=== PATIENT | male | born 1955 | race Caucasian/White ===

== ENCOUNTER → 2024-05-22 07:53 | Outpatient (CLI) | payer OTHER, SELFPAY ==
[2024-05-22 08:17] LABS: Add Manual Diff / Slide Review NO; Basophils Absolute Auto 0 /uL (0-100); Basophils Percent Auto 0.4 % (0-2); Eosinophils Absolute Auto 100 /uL (0-450); Eosinophils Percent Auto 1.4 % (2-4); Hematocrit 46.4 % (41-53); Hemoglobin 15.5 g/dL (13.5-17.5); Lymphocytes Absolute Auto 1100 /uL (1100-4500); Lymphocytes Percent Auto 21.3 % (25-40); Mean Corpuscular HGB Conc 33.5 % (30-36); Mean Corpuscular Hemoglobin 27.7 PG (26-34); Mean Corpuscular Volume 82.8 fL (80-100); Monocytes Absolute Auto 400 /uL (0-900); Monocytes Percent Auto 7.9 % (3-14); Neutrophils Absolute Auto 3700 /uL (1500-7000); Platelet Count 149 X10^3/uL (150-400); White Blood Cell Count 5.3 X10^3/uL (4.5-11.0)
[2024-05-22 08:37] LABS: Hemoglobin A1C% w Est Avg Glu 9.8 % (4.0-6.0)
[2024-05-22 09:42] LABS: Alanine Aminotransferase 35 IU/L (<50); Albumin 4.2 g/dL (3.5-5.0); Albumin Globulin Ratio 1.8 (1.0-2.8); Alkaline Phosphatase 110 U/L (38-126); Aspartate Aminotransferase 32 IU/L (17-59); BUN Creatinine Ratio 24.6 (6-22); Blood Urea Nitrogen 16 mg/dL (9-20); Calcium 8.9 mg/dL (8.4-10.2); Carbon Dioxide 31 mmol/L (22-32); Chloride 99 mmol/L (98-107); Cholesterol 137 mg/dL (140-199); Estimated Glomerular Filt Rate > 60 mL/min (>60); Globulin 2.4 g/dL (1.7-4.1); Glucose 258 mg/dL (80-110); HDL Cholesterol 44 mg/dL (40-60); HEMOLYSIS < 15 (0-50); LDL Cholesterol Calculated 67 mg/dL (<100); Potassium 4.6 mmol/L (3.4-5.1); Sodium 135 mmol/L (137-145); Total Protein 6.6 g/dL (6.3-8.2); Triglycerides 129 mg/dL (35-150)
[2024-05-22 10:39] LABS: Microalbumin Urine Random 6.3 mg/dL (0-1.6)
== END ==
PROVIDERS: PCP Family Medicine; Referring Provider Family Medicine; Visit Provider Family Medicine
DX: E11.9 Type 2 diabetes mellitus without complications (principal); I10 Essential (primary) hypertension; E78.5 Hyperlipidemia, unspecified
CPT/HCPCS: 36415; 80053; 80061; 82043; 82570; 83036; 85025

== ENCOUNTER 2024-07-26 21:28 | Emergency (ER) | payer OTHER, SELFPAY ==
[2024-07-26 21:48] VITALS: BP 178/82; PULSE 100; RESP 18; TEMP 36.6; O2SAT 97; BMI 41.8
[2024-07-26 22:13] LABS: Add Manual Diff / Slide Review NO; Basophils Absolute Auto 0 /uL (0-100); Basophils Percent Auto 0.4 % (0-2); Eosinophils Absolute Auto 200 /uL (0-450); Eosinophils Percent Auto 2.4 % (2-4); Hematocrit 47.2 % (41-53); Hemoglobin 16.1 g/dL (13.5-17.5); Lymphocytes Absolute Auto 1300 /uL (1100-4500); Lymphocytes Percent Auto 17.5 % (25-40); Mean Corpuscular Hemoglobin 28.3 PG (26-34); Mean Corpuscular Volume 83.2 fL (80-100); Monocytes Absolute Auto 600 /uL (0-900); Monocytes Percent Auto 7.9 % (3-14); Neutrophils Absolute Auto 5500 /uL (1500-7000); Neutrophils Percent Auto 71.8 % (50-75); Platelet Count 163 X10^3/uL (150-400); Red Blood Cell Count 5.67 X10^6/uL (4.5-5.9); Red Cell Distribution Width 15.2 % (11.6-14.8); White Blood Cell Count 7.7 X10^3/uL (4.5-11.0)
[2024-07-26 22:21] LABS: Alanine Aminotransferase 33 IU/L (<50); Albumin 4.3 g/dL (3.5-5.0); Albumin Globulin Ratio 1.6 (1.0-2.8); Alkaline Phosphatase 95 U/L (38-126); Aspartate Aminotransferase 33 IU/L (17-59); BUN Creatinine Ratio 23.2 (6-22); Bilirubin Total 1.1 mg/dL (0.2-1.3); Blood Urea Nitrogen 16 mg/dL (9-20); Calcium 9.3 mg/dL (8.4-10.2); Carbon Dioxide 27 mmol/L (22-32); Chloride 101 mmol/L (98-107); Estimated Glomerular Filt Rate > 60 mL/min (>60); Globulin 2.7 g/dL (1.7-4.1); Glucose 172 mg/dL (80-110); HEMOLYSIS < 15 (0-50); Lipase 22 U/L (23-300); Potassium 3.8 mmol/L (3.4-5.1); Sodium 133 mmol/L (137-145)
--- NOTE | 2024-07-26 23:05 | DI.CT.S_ITS ---
PROCEDURE: CT ABDOMEN PELVIS W CON INDICATIONS: abd pain w/bloody stools TECHNIQUE: After the administration of intravenous contrast, axial sections acquired from the lung bases to the pubic symphysis. Coronal and sagittal reformats were performed. For radiation dose reduction, the following was used: automated exposure control, adjustment of mA and/or kV according to patient size. COMPARISON: None. FINDINGS: Image quality: Diagnostic. Lower Chest: There is artifact associated with the metallic hardware. Artifact from the metallic hardware is reduced by metal reconstruction algorithm. ABDOMEN: Liver: No solid mass. Gallbladder: Not seen. Biliary ducts: No biliary dilation. Pancreas: No ductal dilation. Spleen: Size is within normal limits. Adrenal Glands: No adrenal nodules. Kidneys and Ureters: No hydronephrosis. No solid mass. No complex renal cystic lesion which requires follow up. Stomach and Bowel: Generalized moderate wall thickening can be seen throughout the distal colon, beginning at the level the splenic flexure and continuing through the rectum. No dilated loops of small bowel are seen. Peritoneum: No peritoneal abscess is seen. No abnormal intraperitoneal fluid. No free air. Ventral Wall: No significant ventral hernia. Within the anterior abdominal wall inferiorly, there is an ovoid fluid collection, as on series 2, image 20 there 17 measuring 5.9 x 3.3 cm in greatest axial dimension. Abdominal Nodes: No retroperitoneal or mesenteric adenopathy by size criteria. Vessels: Aorta and inferior vena cava are normal in size. PELVIS: Pelvic Organs: Unremarkable. Bladder: Moderate generalized bladder wall thickening is seen. Pelvic Nodes: No enlarged lymph nodes. Miscellaneous: There is a very large right inguinal hernia seen, which contains prominent fat as well as a nondilated loop of distal colon. Bones: Degenerative changes can be seen throughout, which are worst involving the lower lumbar spine. Bilateral hip arthroplasty hardware is seen, with associated artifact. IMPRESSION: Moderate distal colonic wall thickening can be seen. Please correlate with potential infectious and inflammatory causes of colitis. No findings of perforation or abscess can be seen. Very large right inguinal hernia seen, which contains a prominent volume of abdominal fat as well as a nondilated loops of colon. No findings of associated obstruction is seen. Additional findings: Cholecystectomy 5.9 cm cystic focus of the anterior abdominal wall inferiorly Moderate bladder wall thickening, please correlate with bladder outlet obstruction Bilateral hip arthroplasty hardware Dictated by: Ashvin Mittal M.D. on 07/26/2024 at 22:30 Approved by: Ashvin Mittal M.D. on 07/26/2024 at 22:35
[2024-07-26] MEDS: SODIUM CHLORIDE 0.9% 1,000 ML 1000 ML IV (23:11)
--- NOTE | 2024-07-27 00:16 | ED_ITS ---
HPI - Nausea/Vomiting/Diarrhea General Chief complaint: Nausea/Vomiting/Diarrhea Stated complaint: T-2 Diarrhea w/blood/ vomiting Time Seen by Provider: 07/27/24 00:16 Source: patient, RN notes reviewed and old records reviewed Mode of arrival: Ambulatory Limitations: no limitations History of Present Illness HPI Narrative: 68-year-old male history of diabetes, dyslipidemia, hypertension, BPH, known large ventral wall hernia with complaint of nausea vomiting and diarrhea that started on . Patient states he has not had any fevers. Started with explosive diarrhea night throughout the night and into Sunday. Diarrhea continued but not been quite as frequent. Patient has not had any vomiting since yesterday. He states he has had some abdominal cramping throughout. States he noticed some blood in his stool in the last day. Tried eating meal today and had recurrence of his diarrhea. Patient states no chest pain no shortness of breath. He was noted he was not really urinated much but has a lot of watery diarrhea. Patient states he has a known large ventral hernia he states it does not reduce has been there for a long time. He also notes that there is an area that is circular that has been seen on prior imaging for several years. Patient states his sugars has been out of control sometimes up into the 300 range while he has been sick. He takes medication including long-acting insulin for his diabetes has known atrial fibrillation only on metoprolol no aspirin or other thinners. Take Flomax for BPH and medication for dyslipidemia. She was prior cholecystectomy, prior hernia repair no prior cardiac interventions. Person allergy to penicillin but has had amoxicillin in the past without issue as well as an allergy to lisinopril. No tobacco, alcohol or recreational drugs. Dr. Zeng is his primary care physician. Related Data Home Medications Medication Instructions Recorded Confirmed insulin glargine 100 unit/mL (3 60 unit SUBCUT DAILY 05/09/24 05/26/24 mL) subcutaneous pen (Basaglar KwikPen U-100 Insulin) pen needle, diabetic 32 gauge x #1,200 ea 05/09/24 05/26/24 (BD Bessie 2nd Gen Pen Needle) Previous Rx's Medication Instructions Recorded empagliflozin 10 mg tablet 10 mg PO DAILY #90 tabs 05/26/24 (Jardiance) metoprolol succinate 50 mg 50 mg PO BID #180 tabs 07/03/24 tablet,extended release 24 hr rosuvastatin 40 mg tablet 40 mg PO DAILY #90 tabs 07/03/24 tamsulosin 0.4 mg capsule 0.4 mg PO DAILY #90 caps 07/03/24 flash glucose sensor (FreeStyle #1 ea 07/10/24 Christopher 2 Sensor kit) nitrofurantoin 100 mg PO Q12H 7 days #14 caps 07/27/24 monohydrate/macrocrystals 100 mg capsule (Macrobid) Allergies Allergy/AdvReac Type Severity Reaction Status Date / Time Penicillins Allergy Severe Hives Verified 07/26/24 21:52 lisinopril AdvReac Severe sleepiness Verified 07/26/24 21:52 Review of Systems Review of Systems ROS Unobtainable: All systems reviewed & are unremarkable except as noted in HPI and below Patient History Social History Smoking Status: Former smoker Smoking Status: Former smoker Exam Narrative Exam Narrative: GENERAL: Alert and oriented x three, mild distress HEENT: Head normocephalic, atraumatic, EOMI, pupils reactive, face symmetric, moist mucous membranes NECK: Supple, full range of motion CARDIOVASCULAR: Regular rate and rhythm without murmurs, rubs or gallops. RESPIRATORY: Breath sounds equal bilaterally, no wheezes rales or rhonchi. ABDOMEN: Soft, nontender, patient has a large ventral hernia at the lower portion of his pannus, it is soft mildly tender Normoactive bowel sounds all 4 quadrants. No guarding or rebound, rigidity, no mass : No CVA tenderness EXTREMITIES: Normal range of motion, no clubbing or edema. Neurovascularly intact NEUROLOGICAL: Cranial nerves II through XII grossly intact. Moving all extremities SKIN: Warm, dry, no petechiae, no rashes or lesions. Initial Vital Signs Initial Vital Signs: Vital Signs Temperature 97.8 F 07/26/24 21:48 Pulse Rate 100 H 07/26/24 21:48 Respiratory Rate 18 07/26/24 21:48 Blood Pressure 178/82 H 07/26/24 21:48 Pulse Oximetry 97 07/26/24 21:48 Oxygen Delivery Method Room Air 07/26/24 21:48 Course Orders Ordered: ED Orders 07/26/24 21:59 Complete Blood Count AUTO DIFF Stat Comprehensive Metabolic Panel Stat Lipase Stat 07/26/24 22:21 GI Panel (Film Array) Stat 07/26/24 23:05 CT abdomen pelvis w con Stat 07/27/24 01:15 Urine Culture Stat Urine Microscopic Stat Discontinued Medications Dicyclomine HCl (Dicyclomine 10 Mg Capsule) 10 mg PO NOW ONE Stop: 07/27/24 00:34 Last Admin: 07/27/24 01:05 Dose: 10 mg Documented By: AB Sodium Chloride (Normal Saline 0.9%) 1,000 mls @ 1,000 mls/hr IV BOLUS ONE Stop: 07/27/24 00:04 Last Infusion: 07/27/24 00:15 Dose: Infused Documented By: Admin: 07/26/24 23:11 Dose: 1,000 mls/hr Documented By: Sodium Chloride (Normal Saline 0.9%) 1,000 mls @ 500 mls/hr IV BOLUS ONE Stop: 07/27/24 02:41 Last Infusion: 07/27/24 02:19 Dose: Infused Documented By: Admin: 07/27/24 01:24 Dose: 500 mls/hr Documented By: AB Nitrofurantoin Macrocrystals (Nitrofurantoin Er 100 Mg Capsule) 100 mg PO NOW ONE Stop: 07/27/24 02:05 Last Admin: 07/27/24 02:19 Dose: 100 mg Documented By: AB Vital Signs Vital signs: Vital Signs - 8 hr 07/27/24 00:18 07/27/24 02:14 Pulse Rate 75 78 Respiratory Rate 16 18 Blood Pressure 165/77 H 149/74 H Pulse Oximetry 98 98 Oxygen Delivery Method Room Air Room Air MDM - Nausea/Vomiting/Diarrhea Lab Data 07/26/24 21:59 07/26/24 21:59 Labs: Lab Results 07/26/24 07/26/24 07/27/24 Range/Units 21:59 22:21 01:15 WBC 7.7 (4.5-11.0) X10^3/uL RBC 5.67 (4.5-5.9) X10^6/uL Hgb 16.1 (13.5-17.5) g/dL Hct 47.2 (41-53) % MCV 83.2 (80-100) fL MCH 28.3 (26-34) PG MCHC 34.0 (30-36) % RDW 15.2 H (11.6-14.8) % Plt Count 163 (150-400) X10^3/uL Neut % (Auto) 71.8 (50-75) % Lymph % (Auto) 17.5 L (25-40) % [place] % (Auto) 7.9 (3-14) % Eos % (Auto) 2.4 (2-4) % Baso % (Auto) 0.4 (0-2) % Neut # (Auto) 5500 (4377-6994) /uL Lymph # (Auto) 1300 (4119-2767) /uL [place] # (Auto) 600 (0-900) /uL Eos # (Auto) 200 (0-450) /uL Baso # (Auto) 0 (0-100) /uL Sodium 133 L (137-145) mmol/L Potassium 3.8 (3.4-5.1) mmol/L Chloride 101 (98-107) mmol/L Carbon Dioxide 27 (22-32) mmol/L BUN 16 (9-20) mg/dL Creatinine 0.69 (0.66-1.25) mg/dL Estimated GFR > 60 (>60) mL/min BUN/Creatinine Ratio 23.2 H (6-22) Glucose 172 H (80-110) mg/dL Calcium 9.3 (8.4-10.2) mg/dL Total Bilirubin 1.1 (0.2-1.3) mg/dL AST 33 (17-59) IU/L ALT 33 (<50) IU/L Alkaline Phosphatase 95 (38-126) U/L Total Protein 7.0 (6.3-8.2) g/dL Albumin 4.3 (3.5-5.0) g/dL Globulin 2.7 (1.7-4.1) g/dL Albumin/Globulin Ratio 1.6 (1.0-2.8) Lipase 22 L (23-300) U/L Urine RBC None seen (0-5/HPF) Urine WBC 5-10/hpf H (0-5/HPF) Ur Squamous Epith Cells 0-1 /hpf (0-5/HPF) Urine Bacteria Many (>30) H (None) Ur Culture Indicated? Specimen cultured Vol Urine Centrifuged 10ml (spun) Stl C. cayetanensis PCR Not detected (Not Detect) Stool Rotavirus (PCR) Not detected (Not Detect) Stool Adenovirus (PCR) Not detected (Not Detect) Stool Astrovirus (PCR) Not detected (Not Detect) Stool Cryptosporidium PCR Not detected (Not Detect) Stl E.coli Shiga Tox PCR Not detected (Not Detect) St Sh/Enteroin Ecoli PCR Not detected (Not Detect) Stl Enterotoxigenic E PCR Not detected (Not Detect) Stool EPEC (PCR) Not detected (Not Detect) Stl E. histolytica PCR Not detected (Not Detect) Stool Giardia Lamblia PCR Not detected (Not Detect) Stool Sapovirus (PCR) Not detected (Not Detect) Stl P. shigelloides PCR Not detected (Not Detect) St Y.enterocolitica PCR Not detected (Not Detect) Stool Vibrio (PCR) Not detected (Not Detect) Stl Vibrio cholerae PCR Not detected (Not Detect) Stl Enteroaggr Ecoli PCR Not detected (Not Detect) Stl Norovirus GI/GII PCR Not detected (Not Detect) Campylobacter (PCR) Not detected (Not Detect) C. difficile Tox (PCR) Not detected (Not Detect) Salmonella (PCR) Not detected (Not Detect) Urine Dip Bedside Urine Glucose Negative Bedside Urine Bilirubin - Negative Bedside Urine Ketone - Negative Urine Specific [place] 1.015 Bedside Urine Occult Blood + Bedside Urine pH 5.0 Bedside Urine Protein - Negative Bedside Urine Urobilinogen - Negative Bedside Urine Nitrite - Negative Bedside Urine Leukocytes +++ 500 Esterase MDM Narrative Medical decision making narrative: Labs show normal white count, hemoglobin and platelets, sodium is 133 was 135 in April of 2024 normal electrolytes otherwise BUN is 16 with a creatinine of 0.69 glucose is 172, LFTs are negative lipase is low at 22. GI panel is negative. Patient had CT abdomen pelvis shows moderate distal colonic wall thickening no evidence of perforation or abscess. Very large right inguinal hernia which contains prominent volume abdominal fat as well as nondilated loops of colon no findings of associated obstruction. Does not note there is an ovoid fluid collection by 0.9 x 3.3 cm at its greatest dementia in the ventral wall inferiorly. Point of care urine shows positive leukocyte esterase. Red cells, 5-10 white cells 1 squamous many bacteria was sent for culture. Patient had fluids. He did ask for some medication for cramping, states he was not having so much abdominal pain. Was given a dose of Bentyl. post void bladder scan 300-500. Patient is asymptomatic. 68-year-old male nausea vomiting and diarrhea vomiting has not improved patient has had several days of symptoms. He has had some abdominal cramping does have a large chronic ventral hernia does not show any obstructive changes. Patient also has ovoid collection which he was aware of and states has been present for several years seen on his imaging. CT imaging was obtained as patient had had nausea or vomiting for several days elderly male with new blood in his stool. On recheck patient is continuing to feel improved. Tolerating orals. Discussed his bladder scan postvoid there some difficulty with body habitus. Patient notes that he was not sure that was not true number, his body habitus would make bladder scan somewhat difficult. Discussed with the patient and he does not wish for urinary catheterization there maybe some chronic retention but we will have patient follow up. Did discuss if he was having new or worsening pain, fevers persistent vomiting, if he starts having decreased bowel movements or worsening symptoms he should return for re-evaluation. We will treat for potential UTI with his urine but she would not cause his bloody stool. Patient was to have low threshold to return. Discharge Plan Departure Patient Disposition: Home Clinical Impression: Vomiting and diarrhea, UTI (urinary tract infection), Colitis Instructions: DI for Colitis Activity Restrictions/Additional Instructions: Please follow up for recheck, your workup today did show some colitis or thickening of the bowel wall. I would recommend follow up for colonoscopy as her symptoms have improved. As you have had some increased discomfort in your lower abdomen and hernia if this is increasing you should be re-evaluated for potential development of obstruction or incarcerated hernia. Your urine did show signs of infection please take oral antibiotics until completed. Prescription was sent to [facility] in [place]. Please return for fevers, worsening abdominal back or flank pain, persistent vomiting, if you are having persistent bloody stools, lightheadedness or passing out, if you are not able to have a bowel movement or pass flatus/gas, difficulty or inability to urinate or other new or concerning changes. Prescriptions: New nitrofurantoin monohyd/m-cryst [Macrobid] 100 mg capsule 100 mg PO Q12H 7 Days Qty: 14 0RF Rx Instructions: must administer with a meal/food No Action metoprolol succinate 50 mg tablet extended release 24 hr 50 mg PO BID Qty: 180 3RF tamsulosin 0.4 mg capsule 0.4 mg PO DAILY Qty: 90 3RF rosuvastatin 40 mg tablet 40 mg PO DAILY Qty: 90 3RF (DME) FreeStyle Christopher 2 Sensor Kit See Rx Instructions .Route Qty: 1 6RF Rx Instructions: As directed to check blood glucose insulin glargine [Basaglar KwikPen U-100 Insulin] 100 unit/mL (3 mL) insulin pen 60 unit SUBCUT DAILY Patient Comments: [NO ORIGINAL SIG] (DME) pen needle, diabetic [BD Bessie 2nd Gen Pen Needle] 32 gauge x 5/32 needle See Rx Instructions .ROUTE DAILY Qty: 1200 Rx Instructions: As directed, once daily for blood glucose Jardiance 10 mg tablet 10 mg PO DAILY Qty: 90 3RF Referrals: Xuan Corrales DO [Primary Care Provider] - Stand Alone Forms: Patient Portal/API/Survey
[2024-07-27 00:18] VITALS: BP 165/77; PULSE 75; RESP 16; O2SAT 98
[2024-07-27 00:34] LABS: Adenovirus F 40/41 Not Detected (Not Detect); Astrovirus Not Detected (Not Detect); Campylobacter Not Detected (Not Detect); Clostridium difficile toxin AB Not Detected (Not Detect); Cryptosporidium Not Detected (Not Detect); Cyclospora cayetanensis Not Detected (Not Detect); Entamoeba histolytica Not Detected (Not Detect); Enteroaggregative E.coli Not Detected (Not Detect); Enteropathogenic E.coli Not Detected (Not Detect); Enterotoxigenic E.coli It/st Not Detected (Not Detect); Giardia lamblia Not Detected (Not Detect); Norovirus GI/GII Not Detected (Not Detect); Plesiomonsa shigelloides Not Detected (Not Detect); Rotavirus A Not Detected (Not Detect); Salmonella Not Detected (Not Detect); Sapovirus Not Detected (Not Detect); Shiga-like toxin-prod E.coli Not Detected (Not Detect); Shigella/Enteroinvasive E.coli Not Detected (Not Detect); Vibrio Not Detected (Not Detect); Vibrio cholerae Not Detected (Not Detect); Yersinia enterocolitica Not Detected (Not Detect)
[2024-07-27] MEDS: DICYCLOMINE 10 MG CAPSULE PO (01:05)
[2024-07-27] MEDS: SODIUM CHLORIDE 0.9% 1,000 ML 500 ML IV (01:24)
[2024-07-27 01:41] LABS: RBC Urine None Seen (0-5/HPF); Urine Volume 10mL (spun)
[2024-07-27 01:42] LABS: Bacteria Urine Many (>30); Culture Indicated Urine Specimen Cultured; Squamous Epithelial Cell Urine 0-1 /HPF (0-5/HPF); WBC Urine 5-10/HPF (0-5/HPF)
[2024-07-27 02:14] VITALS: BP 149/74; PULSE 78; RESP 18; O2SAT 98
[2024-07-27] MEDS: NITROFURANTOIN ER 100 MG CAPSULE PO (02:19)
== END 2024-07-27 02:21 | disposition home or self-care (01) ==
PROVIDERS: Emergency Provider Emergency Medicine; PCP Family Medicine
DX: K52.9 Noninfective gastroenteritis and colitis, unspecified (principal); N39.0 Urinary tract infection, site not specified; K92.1 Melena; K43.9 Ventral hernia without obstruction or gangrene; E11.9 Type 2 diabetes mellitus without complications; Z79.4 Long term (current) use of insulin
CPT/HCPCS: 36415; 51798; 74177; 80053; 81003; 81015; 83690; 85025; 87045; 87086; 87507; 96360; 96361; 99284; Q9967

== ENCOUNTER → 2024-08-28 08:31 | Outpatient (CLI) | payer OTHER, SELFPAY ==
[2024-08-28 10:57] LABS: Hemoglobin A1C% w Est Avg Glu 7.6 % (4.0-6.0)
== END ==
PROVIDERS: PCP Family Medicine; Referring Provider Family Medicine; Visit Provider Family Medicine
DX: E11.9 Type 2 diabetes mellitus without complications (principal)
CPT/HCPCS: 36415; 83036

== ENCOUNTER → 2025-03-05 10:18 | Outpatient (CLI) | payer OTHER, SELFPAY ==
[2025-03-05 11:31] LABS: Hemoglobin A1C% w Est Avg Glu 9.1 % (4.0-6.0)
== END ==
PROVIDERS: PCP Family Medicine; Referring Provider Family Medicine; Visit Provider Family Medicine
DX: Z12.5 Encounter for screening for malignant neoplasm of prostate (principal); E11.9 Type 2 diabetes mellitus without complications; Z79.4 Long term (current) use of insulin
CPT/HCPCS: 36415; 83036; G0103

== ENCOUNTER → 2025-03-05 12:42 | Outpatient (CLI) | payer OTHER, SELFPAY | PROVIDERS: PCP Family Medicine; Referring Provider Family Medicine; Visit Provider Family Medicine | DX: R19.7 Diarrhea, unspecified (principal); Z87.19 Personal history of other diseases of the digestive system | CPT/HCPCS: 36415; 83036; 87045; G0103 ==

== ENCOUNTER → 2025-03-07 11:28 | Outpatient (CLI) | payer OTHER, SELFPAY ==
--- NOTE | 2025-03-07 11:29 | DI.CT.S_ITS ---
PROCEDURE: CT ABDOMEN PELVIS WO CON INDICATIONS: recurrent diarrhea, hx of colitis, night sewats TECHNIQUE: CT of the abdomen and pelvis was obtained without intravenous contrast. Coronal and sagittal reformats were performed. For radiation dose reduction, the following was used: automated exposure control, adjustment of mA and/or kV according to patient size. COMPARISON: [facility], CT, CT ABDOMEN PELVIS W CON, 07/26/2024, 23:12. FINDINGS: Image quality: Diagnostic. Lower Chest: No significant findings. ABDOMEN: Liver: Hepatic steatosis and hepatomegaly. No discrete hepatic lesion. Gallbladder: Cholecystectomy. Biliary ducts: No biliary dilation. Pancreas: No ductal dilation. Spleen: Size is within normal limits. Adrenal Glands: No adrenal nodules. Kidneys and Ureters: No hydronephrosis. No contour-deforming mass. Stomach and Bowel: Normal colonic caliber, without significant wall thickening. Peritoneum: No abnormal intraperitoneal fluid. No free air. Ventral Wall: Chronic peripherally calcified cyst along the left midline lower abdominal wall, unchanged. Abdominal Nodes: No retroperitoneal or mesenteric adenopathy by size criteria. Vessels: Aorta and inferior vena cava are normal in size. Mild aortic atherosclerotic calcification. PELVIS: Pelvic Organs: Unremarkable. Bladder: Bladder distended with posterior diverticulum. Pelvic Nodes: No enlarged lymph nodes. Miscellaneous: Large left inguinal hernia containing colon and mesentery. No evidence of incarceration. Bones: No aggressive osseous abnormality. Bilateral total hip arthroplasty. Severe degenerative changes of the spine with grade 1 anterolisthesis at L4-L5. Degenerative disc disease has progressed from prior examination. Chronic right L5 pars defects. IMPRESSION: No evidence of acute inflammation. Chronic large colon containing left inguinal hernia similar to prior with no evidence of incarceration. Distended bladder diverticuli. Hepatic steatosis. Progressive degenerative change of the spine. Dictated by: Rosendo Stallworth M.D. on 03/07/2025 at 21:45 Approved by: Rosendo Stallworth M.D. on 03/07/2025 at 21:54
== END ==
PROVIDERS: PCP Family Medicine; Referring Provider Family Medicine; Visit Provider Family Medicine
DX: R19.7 Diarrhea, unspecified (principal); K40.90 Unilateral inguinal hernia, without obstruction or gangrene, not specified as recurrent; N32.3 Diverticulum of bladder; K76.0 Fatty (change of) liver, not elsewhere classified; N40.1 Benign prostatic hyperplasia with lower urinary tract symptoms; N13.8 Other obstructive and reflux uropathy; R93.5 Abnormal findings on diagnostic imaging of other abdominal regions, including retroperitoneum; Z87.19 Personal history of other diseases of the digestive system; Z68.42 Body mass index [BMI] 45.0-49.9, adult; Z90.49 Acquired absence of other specified parts of digestive tract
CPT/HCPCS: 74176